=== PATIENT | female | born 1985 | race African-American/Black ===

== ENCOUNTER 2016-08-11 18:39 | Emergency (ER) | payer MEDICAID ==
[~2016-08-11] VITALS: Ht 165.1 cm; Wt 50.0 kg
[2016-08-12] MEDS ORDERED: ONDANSETRON HCL 4MG/2ML VIAL IV STA (03:16)
[2016-08-12] MEDS ORDERED: KETOROLAC 30MG/ML VIAL IV STA (03:16)
[2016-08-12] MEDS ORDERED: FAMOTIDINE 20MG/2ML VIAL IV STA (03:16)
[2016-08-12] MEDS ORDERED: SODIUM CHLORIDE 0.9% 1,000 ML IV ONE (03:16)
[2016-08-12 03:40] LABS: BASOPHILS % 0.9 % (0.0-2.0); EOSINOPHILS % 0.1 % (0.0-5.0); HEMOGLOBIN. 12.3 g/dL (12.0-16.0); LYMPHOCYTES % 17.2 % (20.0-50.0); MEAN CORPUSCULAR HEMOGLOBIN 24.6 pg (28.0-32.0); MEAN CORPUSCULAR VOLUME 74.2 fL (81.0-99.0); MEAN PLATELET VOLUME 9.3 fl (7.4-10.4); MONOCYTES % 7.3 % (2.0-8.0); NEUTROPHILS % 74.5 % (40.0-76.0); PLATELET 223 x1000/uL (130-400); RED BLOOD CELL COUNT 4.99 mill/uL (4.2-5.4)
[2016-08-12 03:45] LABS: CHLORIDE 105 mEq/L (98-107)
[2016-08-12 03:55] LABS: CARBON DIOXIDE 24 mEq/L (21-32)
[2016-08-12 04:50] LABS: CLARITY URINE CLEAR (CLEAR); COLOR URINE DARK YELLOW (YELLOW); GLUCOSE URINE NEGATIVE (NEGATIVE); KETONES URINE 3+ (NEGATIVE); LEUKOCYTE ESTERASE URINE TRACE (NEGATIVE); NITRITE URINE NEGATIVE (NEGATIVE); OCCULT BLOOD URINE 3+ (NEGATIVE); PROTEIN URINE 1+ (NEGATIVE); SPECIFIC GRAVITY URINE 1.031 (1.005-1.030)
[2016-08-12 05:59] VITALS: BP 122/86
== END 2016-08-12 06:10 | disposition home or self-care (01) ==
LOC: ER 18:58
DX: K21.9 Gastro-esophageal reflux disease without esophagitis (principal); K29.00 Acute gastritis without bleeding; E87.6 Hypokalemia; C80.1 Malignant (primary) neoplasm, unspecified
CPT/HCPCS: 36415; 80053; 81001; 81025; 83690; 85025; 96361; 96374; 96375; 99284; J1885; J2405; J3490; J7030; Z7610

== ENCOUNTER 2017-06-06 23:04 | Emergency (ER) | payer MEDICAID ==
[~2017-06-06] VITALS: Ht 157.5 cm; Wt 48.0 kg
[2017-06-07 01:55] LABS: BASOPHILS % 0.8 % (0.0-2.0); EOSINOPHILS % 0.3 % (0.0-5.0); HEMATOCRIT. 35.7 % (36.0-48.0); HEMOGLOBIN. 11.5 g/dL (12.0-16.0); LYMPHOCYTES % 19.3 % (20.0-50.0); MEAN CORPUSCULAR HEMOGLOBIN 21.4 pg (28.0-32.0); MEAN CORPUSCULAR VOLUME 66.7 fL (81.0-99.0); MEAN PLATELET VOLUME 9.1 fl (7.4-10.4); MONOCYTES % 8.7 % (2.0-8.0); NEUTROPHILS % 70.9 % (40.0-76.0); PLATELET 324 x1000/uL (130-400); RED BLOOD CELL COUNT 5.35 mill/uL (4.2-5.4); RED CELL DISTRIBUTION WIDTH 20.4 % (11.6-14.6)
[2017-06-07 02:00] LABS: CHLORIDE 105 mEq/L (98-107)
[2017-06-07 02:09] LABS: T4 FREE 1.27 ng/dL (0.76-1.46)
[2017-06-07 02:20] LABS: HCG SCREEN NEGATIVE
[2017-06-07] MEDS ORDERED: POTASSIUM CHLORIDE 10MEQ TABLET SR PO ONE (02:45)
[2017-06-07] MEDS ORDERED: LORAZEPAM 0.5MG TABLET PO ONE (02:45)
[2017-06-07 03:11] VITALS: BP 127/86
== END 2017-06-07 03:17 | disposition home or self-care (01) ==
LOC: ER 06-07 00:36
DX: R45.1 Restlessness and agitation (principal); F06.4 Anxiety disorder due to known physiological condition; F15.980 Other stimulant use, unspecified with stimulant-induced anxiety disorder; R00.2 Palpitations; E87.6 Hypokalemia; D50.9 Iron deficiency anemia, unspecified
CPT/HCPCS: 36415; 80053; 81025; 84439; 84443; 84703; 85025; 93005; 99285

== ENCOUNTER 2020-05-07 23:10 | Emergency (ER) | payer MEDICAID ==
[~2020-05-07] VITALS: Ht 160 cm; Wt 55.0 kg
[2020-05-07] MEDS ORDERED: OLANZAPINE 5MG TABLET ODT PO ONE (23:30)
[2020-05-07 23:56] LABS: BASOPHILS % 0.5 % (0.0-2.0); EOSINOPHILS % 0.1 % (0.0-5.0); HEMATOCRIT. 42.3 % (36.0-48.0); HEMOGLOBIN. 14.2 g/dL (12.0-16.0); LYMPHOCYTES % 7.1 % (20.0-50.0); MEAN CORPUSCULAR HEMOGLOBIN 27.7 pg (28.0-32.0); MEAN CORPUSCULAR VOLUME 82.3 fL (81.0-99.0); MONOCYTES % 4.9 % (2.0-8.0); NEUTROPHILS % 87.4 % (40.0-76.0); PLATELET 222 x1000/uL (130-400); RED BLOOD CELL COUNT 5.14 mill/uL (4.2-5.4); RED CELL DISTRIBUTION WIDTH 12.7 % (11.6-14.6)
[2020-05-08] LABS: CHLORIDE 106 mEq/L (98-107)
[2020-05-08] MEDS ORDERED: HALOPERIDOL LACTATE 5MG/ML VIAL IM ONE
[2020-05-08 00:06] LABS: ETHANOL BLOOD < 10 mg/dL
[2020-05-08 09:42] LABS: CLARITY URINE CLOUDY (CLEAR); COLOR URINE YELLOW (YELLOW); KETONES URINE 3+ (NEGATIVE); LEUKOCYTE ESTERASE URINE TRACE (NEGATIVE); NITRITE URINE NEGATIVE (NEGATIVE); OCCULT BLOOD URINE TRACE (NEGATIVE); PROTEIN URINE 1+ (NEGATIVE); SPECIFIC GRAVITY URINE 1.032 (1.005-1.030); UROBILINOGEN URINE 0.2 E.U./dL (0.2-1.0)
[2020-05-08 10:11] LABS: *BARBITURATES SCREEN URINE NEGATIVE (NEGATIVE); *BENZODIAZEPINES SCREEN URINE NEGATIVE (NEGATIVE); *COCAINE SCREEN URINE NEGATIVE (NEGATIVE); CANNABINOID URINE SCREEN NEGATIVE (NEGATIVE); METHADONE URINE SCREEN NEGATIVE (NEGATIVE); OPIATES URINE SCREEN NEGATIVE (NEGATIVE); PHENCYCLIDINE URINE SCREEN NEGATIVE (NEGATIVE)
[2020-05-08 10:12] LABS: *AMPHETAMINES SCREEN URINE NEGATIVE (NEGATIVE)
[2020-05-09 14:15] VITALS: BP 136/94
== END 2020-05-09 14:30 | disposition home or self-care (01) ==
LOC: ER 23:10
DX: F23 Brief psychotic disorder (principal); F31.9 Bipolar disorder, unspecified; Z91.14 Patient's other noncompliance with medication regimen; Z85.9 Personal history of malignant neoplasm, unspecified; Z75.1 Person awaiting admission to adequate facility elsewhere
CPT/HCPCS: 36415; 80053; 80305; 80307; 80320; 80329; 81003; 81025; 82962; 85025; 93005; 96372; 99285; J1630; G0480